=== PATIENT | female | born 1950 | race Caucasian/White ===

== ENCOUNTER 2025-02-12 07:00 | Day surgery (SDC) | payer MEDICARE, MEDICAID ==
[~2025-02-12 07:00] MED LIST: Brimonidine 0.2% Ophth Soln 5 ML Bottle ONE; Dexamethasone/Neomycin/Polymyxin B Ophth Oint 3.5 GM Tube ONE; Lidocaine 1% 2 ML ONE; Phenyleprhine/Ketorolac 4 ML Vial ONE; Povidone-Iodine 5% Sterile Ophth Soln 30 ML Bottle ONE; Proparacaine 0.5% Ophth Soln 15 ML Bottle ONE
[2025-02-12] MEDS: Cyclopentolate 1% Opth Soln 2 ML Bottle EYELF SCH (07:11)
[2025-02-12] MEDS: Phenylephrine 2.5% Ophth Soln 2 ML Bot EYELF SCH (07:11)
[2025-02-12] MEDS: Tropicamide 1% Ophth Soln 15 ML Bottle EYELF SCH (07:11)
[2025-02-12] MEDS ORDERED: ceFAZolin 500 MG Vial ONE (07:12)
[2025-02-12] MEDS ORDERED: Midazolam 1 MG/ML 2 ML SDV ONE (07:28)
[2025-02-12] MEDS ORDERED: fentaNYL 100 MCG/2 ML SDV ONE (07:28)
[2025-02-12] MEDS: Moxifloxacin 0.5% Ophth Soln 3 ML Bottle EYELF ONE ×2 (07:34→08:51)
[2025-02-12] MEDS: Balanced Salt Solution Ophth Irrig 500 ML Bottle IOCULAR ONE (08:51)
[2025-02-12] MEDS: Povidone-Iodine 5% Sterile Ophth Soln 30 ML Bottle EYELF ONE (08:51)
[2025-02-12] MEDS: Phenyleprhine/Ketorolac 4 ML Vial IO ONE (08:52)
[2025-02-12] MEDS: Chondroitin Sulfate/Hyaluronate Sodium Ophth Inj 0.5 ML Syringe IOCULAR ONE (08:52)
[2025-02-12] MEDS: Lidocaine 1% PF 2 ML SDV INFILT ONE (08:52)
[2025-02-12] MEDS: Brimonidine 0.2% Ophth Soln 5 ML Bottle EYELF ONE (08:52)
[2025-02-12] MEDS: Dexamethasone/Neomycin/Polymyxin B Ophth Oint 3.5 GM Tube EYELF ONE (08:53)
[2025-02-12] MEDS: acetaZOLAMIDE 500 MG Cap.ER PO ONE (09:13)
== END 2025-02-12 09:54 | disposition home or self-care (01) ==
LOC: VM.SDS 07:00
PROVIDERS: ATTEND Ophthalmology
DX: H25.813 Combined forms of age-related cataract, bilateral (principal); I10 Essential (primary) hypertension; Z79.899 Other long term (current) drug therapy; Z88.8 Allergy status to other drugs, medicaments and biological substances
CPT/HCPCS: 00142; 99100; A9270-GY; J0690; J1097; J2003; J2250; J3010; J3490; V2632

== ENCOUNTER → 2025-03-12 | Day surgery (SDC) | payer MEDICARE, MEDICAID ==
[~2025-03-12] MED LIST changes: +Midazolam 1 MG/ML 2 ML SDV ONE; +ceFAZolin 500 MG Vial ONE; +fentaNYL 100 MCG/2 ML SDV ONE
[2025-03-12] MEDS: Phenylephrine 2.5% Ophth Soln 2 ML Bot EYELF SCH (06:45)
[2025-03-12] MEDS: Tropicamide 1% Ophth Soln 15 ML Bottle EYELF SCH (06:46)
[2025-03-12] MEDS: Cyclopentolate 1% Opth Soln 2 ML Bottle EYELF SCH (06:46)
[2025-03-12] MEDS: Moxifloxacin 0.5% Ophth Soln 3 ML Bottle EYELF ONE (07:12)
[2025-03-12] MEDS: Povidone-Iodine 5% Sterile Ophth Soln 30 ML Bottle EYERT ONE (08:32)
[2025-03-12] MEDS: Moxifloxacin 0.5% Ophth Soln 3 ML Bottle EYERT ONE (08:32)
[2025-03-12] MEDS: Balanced Salt Solution Ophth Irrig 500 ML Bottle IOCULAR ONE (08:33)
[2025-03-12] MEDS: Phenyleprhine/Ketorolac 4 ML Vial IO ONE (08:33)
[2025-03-12] MEDS: Lidocaine 1% PF 2 ML SDV INFILT ONE (08:33)
[2025-03-12] MEDS: Chondroitin Sulfate/Hyaluronate Sodium Ophth Inj 0.5 ML Syringe IOCULAR ONE (08:33)
[2025-03-12] MEDS: Dexamethasone/Neomycin/Polymyxin B Ophth Oint 3.5 GM Tube EYERT ONE (08:34)
[2025-03-12] MEDS: Brimonidine 0.2% Ophth Soln 5 ML Bottle EYERT ONE (08:34)
[2025-03-12] MEDS: acetaZOLAMIDE 500 MG Cap.ER PO ONE (08:54)
== END ==
LOC: VM.SDS 06:34
PROVIDERS: ATTEND Ophthalmology
DX: H25.813 Combined forms of age-related cataract, bilateral (principal); I10 Essential (primary) hypertension; Z79.899 Other long term (current) drug therapy
CPT/HCPCS: 00142; 99100; A9270-GY; J0690; J1097; J2003; J2250; J3010; J3490; V2632